=== PATIENT | female | born 1960 | race African-American/Black ===

== ENCOUNTER 2021-01-14 11:17 | Emergency (ER) | payer MEDICARE, MEDICAID ==
[~2021-01-14] VITALS: Ht 165.1 cm; Wt 60.0 kg
[2021-01-14] MEDS ORDERED: BACITRACIN ZINC OINT UDPKT TOP ONE (12:45)
[2021-01-14] MEDS ORDERED: TETANUS, DIPHTHERIA, PERTUSSIS VAC/PF 0.5ML (>10YR OLD) IM ONE (12:45)
[2021-01-14] MEDS ORDERED: ACETAMINOPHEN 325MG TABLET PO ONE (12:45)
[2021-01-14] MEDS ORDERED: TOPUD MT (15:40)
[2021-01-14 16:11] VITALS: BP 119/78
== END 2021-01-14 16:13 | disposition home or self-care (01) ==
LOC: ER 11:36
DX: S02.2XXA Fracture of nasal bones, initial encounter for closed fracture (principal); S00.81XA Abrasion of other part of head, initial encounter; S00.31XA Abrasion of nose, initial encounter; S80.212A Abrasion, left knee, initial encounter; M79.641 Pain in right hand; W01.0XXA Fall on same level from slipping, tripping and stumbling without subsequent striking against object, initial encounter; Y93.89 Activity, other specified; Y92.018 Other place in single-family (private) house as the place of occurrence of the external cause
CPT/HCPCS: 70486; 73130; 73562; 90471; 90715; 99285

== ENCOUNTER 2023-12-27 09:00 | Emergency (ER) | payer MEDICARE, MEDICAID ==
[~2023-12-27] VITALS: Ht 167.6 cm; Wt 91.0 kg
[~2023-12-27 09:00] MED LIST: TOPUD MT
[2023-12-27 09:02] VITALS: O2SAT 99
[2023-12-27 09:07] VITALS: TEMP 100.4; O2SAT 98
[2023-12-27 09:41] LABS: BASOPHILS % 0.5 % (0.0-2.0); DIFFERENTIAL COMMENT 0; EOSINOPHILS % 0.3 % (0.0-5.0); HEMATOCRIT. 30.1 % (36.0-48.0); HEMOGLOBIN. 10.1 g/dL (12.0-16.0); LYMPHOCYTES % 25.7 % (20.0-50.0); MEAN CORPUSCULAR HEMOGLOBIN 35.8 pg (28.0-32.0); MEAN CORPUSCULAR HGB CONC 33.7 g/dL (31.0-37.0); MEAN CORPUSCULAR VOLUME 106.5 fL (81.0-99.0); MEAN PLATELET VOLUME 7.5 fl (7.4-10.4); MONOCYTES % 10.1 % (2.0-8.0); NEUTROPHILS % 63.4 % (40.0-76.0); PLATELET 215 x1000/uL (130-400); RED BLOOD CELL COUNT 2.82 mill/uL (4.2-5.4); WHITE BLOOD COUNT 9.1 x1000/uL (4.5-11.0)
[2023-12-27 09:57] LABS: POTASSIUM 3.8 mEq/L (3.5-5.1)
[2023-12-27 09:58] VITALS: BP 128/77; PULSE 77; RESP 14
[2023-12-27] MEDS: IBUPROFEN 600MG TABLET PO STA (09:58)
[2023-12-27 09:59] LABS: CALCIUM 9.5 mg/dL (8.7-10.4)
[2023-12-27 10:03] LABS: CREATININE 1.5 mg/dL (0.6-1.0)
[2023-12-27 10:13] LABS: CLARITY URINE TURBID (CLEAR); COLOR URINE YELLOW (YELLOW); GLUCOSE URINE NEGATIVE (NEGATIVE); KETONES URINE NEGATIVE (NEGATIVE); LEUKOCYTE ESTERASE URINE 3+ (NEGATIVE); NITRITE URINE POSITIVE (NEGATIVE); OCCULT BLOOD URINE 1+ (NEGATIVE); PROTEIN URINE 1+ (NEGATIVE); SPECIFIC GRAVITY URINE 1.017 (1.005-1.030)
[2023-12-27 10:21] LABS: BACTERIA URINE 4+; SQUAMOUS EPITHELIAL CELL URINE 3+ /lpf (RARE/1+); WBC URINE 25-50 /hpf (0-2); YEAST URINE NONE SEEN
[2023-12-27] MEDS ORDERED: CEPH500T MT (11:01)
[2023-12-27] MEDS ORDERED: ACET-2708 MT (11:01)
[2023-12-27] MEDS: CEFTRIAXONE SODIUM 1G VIAL IM ONE (11:11)
== END 2023-12-27 11:30 | disposition home or self-care (01) ==
LOC: ER 09:00
DX: N39.0 Urinary tract infection, site not specified (principal); Z20.822 Contact with and (suspected) exposure to COVID-19
CPT/HCPCS: 36415; 71045; 80048; 81003; 85025; 87077; 87186; 87426; 87804; 99284

== ENCOUNTER 2024-02-26 13:08 | Emergency (ER) | payer MEDICARE, MEDICAID ==
[~2024-02-26] VITALS: Ht 160 cm; Wt 73.0 kg
[~2024-02-26 13:08] MED LIST changes: +ACET-2708 MT; +CEPH500T MT
[2024-02-26 13:13] VITALS: O2SAT 100
[2024-02-26] MEDS ORDERED: KETOROLAC 30MG/ML VIAL IM ONE (15:15)
[2024-02-26] MEDS ORDERED: ACETAMINOPHEN 325MG TABLET PO ONE (15:15)
[2024-02-26] MEDS ORDERED: ACET-2708 MT (17:04)
[2024-02-26] MEDS: KETOROLAC 30MG/ML VIAL IM NR (17:30)
[2024-02-26] MEDS: ACETAMINOPHEN 325MG TABLET PO NR (18:31)
[2024-02-26 18:41] VITALS: BP 179/87; PULSE 88; RESP 18; TEMP 36.61404; O2SAT 100
== END 2024-02-26 18:47 | disposition home or self-care (01) ==
LOC: ER 13:08
DX: M79.605 Pain in left leg (principal); I10 Essential (primary) hypertension
CPT/HCPCS: 99285; 93971; 73560; 73590; 96372; J1885

== ENCOUNTER 2025-03-11 06:03 | Inpatient (IN) | payer MEDICARE, MEDICAID ==
[~2025-03-11] VITALS: Ht 162.6 cm; Wt 86.6 kg
[2025-03-11 06:05] VITALS: O2SAT 99
[2025-03-11] MEDS: SODIUM CHLORIDE 0.9% (SEPSIS BOLUS) IV ONE (07:13)
[2025-03-11] MEDS: AMPICILLIN SOD/SULBACTAM NA 3 G in SODIUM CHLORIDE 0.9% 100 ML IV STA (07:14)
[2025-03-11 07:15] LABS: HEMATOCRIT. 34.5 % (36.0-48.0); HEMOGLOBIN. 11.2 g/dL (12.0-16.0); MEAN PLATELET VOLUME 7.9 fl (7.4-10.4); PLATELET 244 x1000/uL (130-400); RED BLOOD CELL COUNT 3.57 mill/uL (4.2-5.4); RED CELL DISTRIBUTION WIDTH 14.2 % (11.6-14.6)
[2025-03-11 07:29] LABS: INR 1.1
[2025-03-11 07:33] LABS: UREA NITROGEN BLOOD 18 mg/dL (9-23)
[2025-03-11 07:34] LABS: ASPARTATE AMINOTRANSFERASE 52 IU/L (<34)
[2025-03-11 07:35] LABS: BILIRUBIN DIRECT 0.5 mg/dL (<=3.0); BILIRUBIN TOTAL 1.9 mg/dL (0.1-1.0); PROTEIN TOTAL 8.2 g/dL (6.0-8.3)
[2025-03-11 07:45] LABS: CREATININE 2.1 mg/dL (0.6-1.0)
[2025-03-11 09:00] VITALS: BP 125/68; PULSE 111; RESP 18; TEMP 37.9192
[2025-03-11 10:10] LABS: BAND% 7.0 % (1.0-6.0); EOSINOPHILS % MANUAL 2.0 % (0.0-5.0); LYMPHOCYTES % MANUAL 3.0 % (20.0-60.0); MONOCYTES % MANUAL 2.0 % (2.0-8.0); NEUTROPHILS % MANUAL 86.0 % (45.0-75.0); PLATELET ESTIMATE NORMAL
[2025-03-11] MEDS ORDERED: HYDROCODONE/ACETAMINOPHEN 5/325MG TABLET PO PRN ×2 (10:15→13:15)
[2025-03-11] MEDS ORDERED: NALOXONE HCL 0.4MG/ML VIAL IV PRN (10:30)
[2025-03-11 10:43] LABS: CLARITY URINE CLOUDY (CLEAR); COLOR URINE YELLOW (YELLOW); GLUCOSE URINE NEGATIVE (NEGATIVE); KETONES URINE NEGATIVE (NEGATIVE); LEUKOCYTE ESTERASE URINE 3+ (NEGATIVE); NITRITE URINE NEGATIVE (NEGATIVE); OCCULT BLOOD URINE TRACE (NEGATIVE); PH URINE 5.0 (4.5-8.0); PROTEIN URINE TRACE (NEGATIVE); SPECIFIC GRAVITY URINE 1.015 (1.005-1.030); UROBILINOGEN URINE 0.2 E.U./dL (0.2-1.0)
[2025-03-11 11:02] LABS: HYALINE CASTS URINE 0-5 /lpf
[2025-03-11 11:03] LABS: WBC URINE TNTC /hpf (0-2)
[2025-03-11 11:04] LABS: BACTERIA URINE 2+; TRICHOMONAS URINE FEW
[2025-03-11 11:05] LABS: MUCUS URINE 1+ /lpf (< = 2+); RBC URINE 0-2 /hpf (0-2); SQUAMOUS EPITHELIAL CELL URINE 2+ /lpf (RARE/1+)
[2025-03-11 12:00] VITALS: BP 125/68; PULSE 108; RESP 18; TEMP 37.7; O2SAT 96
[2025-03-11] MEDS ORDERED: ONDANSETRON HCL 4MG/2ML INJ IV PRN (13:15)
[2025-03-11] MEDS ORDERED: CLONIDINE 0.1MG TABLET PO PRN (13:15)
[2025-03-11] MEDS ORDERED: MAGNESIUM/ALUMINUM HYDROXIDE/SIMETHICONE 30ML UDC PO PRN (13:15)
[2025-03-11] MEDS ORDERED: ZOLPIDEM TARTRATE 5MG TABLET PO PRN (13:15)
[2025-03-11] MEDS ORDERED: SODIUM CHLORIDE 0.9% 1,000 ML IV SCH (13:15)
[2025-03-11] MEDS: SODIUM CHLORIDE 0.9% 1,000 ML IV SCH (13:30)
[2025-03-11] MEDS: PIPERACILLIN/TAZO 3.375G/50ML 50 ML IV SCH (14:17)
[2025-03-11] MEDS: ENOXAPARIN 40MG/0.4ML SYR SUBCUT SCH (14:20)
[2025-03-11] MEDS: ACETAMINOPHEN 325MG TABLET PO PRN (15:07)
[2025-03-11] MEDS: VANCOMYCIN 1.75GM PMX (XELLIA) 350 ML IV SCH (15:08)
[2025-03-11 16:00] VITALS: BP 124/48; PULSE 110; RESP 18; TEMP 38.9; O2SAT 98
[2025-03-11 20:00] VITALS: BP 105/51; PULSE 100; RESP 19; TEMP 36.8; O2SAT 97
[2025-03-12] VITALS: BP 101/62; PULSE 95; RESP 17; TEMP 36.7; O2SAT 98
[2025-03-12 04:16] VITALS: BP 112/55; PULSE 97; RESP 18; TEMP 36.6; O2SAT 97
[2025-03-12 07:22] LABS: UREA NITROGEN BLOOD 14.0 mg/dL (9-23)
[2025-03-12 07:28] LABS: CREATININE 1.4 mg/dL (0.6-1.0)
[2025-03-12 07:34] LABS: BASOPHILS % 0.2 % (0.0-2.0); EOSINOPHILS % 4.5 % (0.0-5.0); HEMATOCRIT. 27.4 % (36.0-48.0); HEMOGLOBIN. 8.9 g/dL (12.0-16.0); LYMPHOCYTES % 7.3 % (20.0-50.0); MEAN PLATELET VOLUME 7.8 fl (7.4-10.4); MONOCYTES % 4.1 % (2.0-8.0); NEUTROPHILS % 83.9 % (40.0-76.0); PLATELET 176 x1000/uL (130-400); RED BLOOD CELL COUNT 2.85 mill/uL (4.2-5.4); RED CELL DISTRIBUTION WIDTH 14.0 % (11.6-14.6)
[2025-03-12 08:00] VITALS: BP 116/53; PULSE 63; RESP 18; TEMP 36.1; O2SAT 100
[2025-03-12] MEDS: PANTOPRAZOLE SODIUM 40 MG/VIAL IV SCH (09:47)
[2025-03-12 12:00] VITALS: BP 106/58; PULSE 93; RESP 18; TEMP 36.5; O2SAT 100
[2025-03-12 13:31] LABS: *AMPHETAMINES SCREEN URINE NEGATIVE (NEGATIVE); *BARBITURATES SCREEN URINE NEGATIVE (NEGATIVE); *BENZODIAZEPINES SCREEN URINE NEGATIVE (NEGATIVE); *COCAINE SCREEN URINE NEGATIVE (NEGATIVE); ECSTASY MDMA SCREEN URINE NEGATIVE (NEGATIVE); METHADONE URINE SCREEN NEGATIVE (NEGATIVE); OPIATES URINE SCREEN NEGATIVE (NEGATIVE); PHENCYCLIDINE URINE SCREEN NEGATIVE (NEGATIVE)
[2025-03-12] MEDS ORDERED: DOLU50TA MT (14:05)
[2025-03-12] MEDS ORDERED: EMTR1TAB12 MT (14:05)
[2025-03-12] MEDS ORDERED: LISI-649 MT (14:08)
[2025-03-12 15:09] LABS: CANNABINOID URINE SCREEN NEGATIVE (NEGATIVE)
[2025-03-12 16:00] VITALS: BP 119/56; PULSE 87; RESP 19; TEMP 36.7; O2SAT 100
[2025-03-12 20:00] VITALS: BP 99/44; PULSE 90; RESP 18; TEMP 36.6; O2SAT 98
[2025-03-12] MEDS: VANCOMYCIN 750MG PREMIX 150 ML IV SCH (21:23)
[2025-03-12] MEDS: MORPHINE SULFATE 2 MG/ML INJ (NOT FOR IM USE) IV PRN (21:51)
[2025-03-13] VITALS: BP 113/58; PULSE 79; RESP 18; TEMP 36.3; O2SAT 97
[2025-03-13 04:00] VITALS: BP 103/59; PULSE 76; RESP 19; TEMP 36; O2SAT 99
[2025-03-13 07:52] LABS: BASOPHILS % 0.2 % (0.0-2.0); EOSINOPHILS % 7.2 % (0.0-5.0); HEMATOCRIT. 27.4 % (36.0-48.0); HEMOGLOBIN. 9.1 g/dL (12.0-16.0); LYMPHOCYTES % 15.6 % (20.0-50.0); MEAN PLATELET VOLUME 8.1 fl (7.4-10.4); MONOCYTES % 7.5 % (2.0-8.0); NEUTROPHILS % 69.5 % (40.0-76.0); PLATELET 167 x1000/uL (130-400); RED BLOOD CELL COUNT 2.87 mill/uL (4.2-5.4); RED CELL DISTRIBUTION WIDTH 13.8 % (11.6-14.6)
[2025-03-13 08:00] VITALS: BP 147/67; PULSE 79; RESP 18; TEMP 36.6; O2SAT 99
[2025-03-13 08:16] LABS: CREATININE 1.1 mg/dL (0.6-1.0)
[2025-03-13 08:20] LABS: UREA NITROGEN BLOOD 8 mg/dL (9-23)
[2025-03-13 12:00] VITALS: BP 111/59; PULSE 94; RESP 16; TEMP 36.4; O2SAT 100
[2025-03-13] MEDS: POTASSIUM CHLORIDE 20MEQ TABLET SR PO NR (14:19)
[2025-03-13] MEDS ORDERED: VANCOMYCIN 1.25GM/250ML 250 ML IV SCH (15:00)
[2025-03-13 16:00] VITALS: BP 121/67; PULSE 83; RESP 16; TEMP 36.4; O2SAT 99
[2025-03-13 20:00] VITALS: BP 119/55; PULSE 85; RESP 18; TEMP 36.7; O2SAT 99
[2025-03-13] MEDS: TIVICAY (DOLUTEGRAVIR) 50MG TABLET PO SCH (23:28)
[2025-03-14] VITALS: BP 127/74; PULSE 82; RESP 19; TEMP 36.7; O2SAT 99
[2025-03-14 04:00] VITALS: BP 120/59; PULSE 79; RESP 19; TEMP 36.5; O2SAT 99
[2025-03-14 07:31] LABS: BASOPHILS % 0.5 % (0.0-2.0); EOSINOPHILS % 12.2 % (0.0-5.0); HEMATOCRIT. 29.1 % (36.0-48.0); HEMOGLOBIN. 9.6 g/dL (12.0-16.0); LYMPHOCYTES % 24.0 % (20.0-50.0); MEAN PLATELET VOLUME 7.9 fl (7.4-10.4); MONOCYTES % 13.5 % (2.0-8.0); NEUTROPHILS % 49.8 % (40.0-76.0); PLATELET 199 x1000/uL (130-400); RED BLOOD CELL COUNT 3.04 mill/uL (4.2-5.4); RED CELL DISTRIBUTION WIDTH 14.2 % (11.6-14.6)
[2025-03-14 07:55] LABS: CREATININE 1.0 mg/dL (0.6-1.0); UREA NITROGEN BLOOD 10 mg/dL (9-23)
[2025-03-14 08:00] VITALS: BP 127/67; PULSE 75; RESP 19; TEMP 36.6; O2SAT 99
[2025-03-14] MEDS ORDERED: AMOX1TAB16 MT (10:29)
[2025-03-14] MEDS ORDERED: SULF1TAB48 MT (10:29)
[2025-03-14 11:53] VITALS: BP 127/66; PULSE 75; RESP 19; TEMP 97.7
[2025-03-14 12:00] VITALS: BP 127/66; PULSE 75; RESP 19; TEMP 36.5; O2SAT 100
[2025-03-14] MEDS ORDERED: VANCOMYCIN 750MG PREMIX 150 ML IV SCH (21:00)
[2025-03-15] MEDS ORDERED: FAMOTIDINE 20MG/2ML VIAL IV SCH (09:00)
== END 2025-03-14 15:45 | disposition home or self-care (01) | DRG 872 ==
LOC: ER 06:03 → 4WST 08:06 → EDBEDREQ 08:10 → EDBEDREQTM 08:10 → ENRESERV 08:44
PROVIDERS: ADMIT Internal Medicine; ATTEND Internal Medicine
DX: A41.9 Sepsis, unspecified organism (principal); S09.90XA Unspecified injury of head, initial encounter; L03.115 Cellulitis of right lower limb; N17.9 Acute kidney failure, unspecified; N39.0 Urinary tract infection, site not specified; L03.116 Cellulitis of left lower limb; I10 Essential (primary) hypertension; I87.8 Other specified disorders of veins; I87.2 Venous insufficiency (chronic) (peripheral); X58.XXXA Exposure to other specified factors, initial encounter; Y93.89 Activity, other specified; Y92.89 Other specified places as the place of occurrence of the external cause; Y99.8 Other external cause status
CPT/HCPCS: 36415; 71045; 80048; 80076; 80305; 81003; 83605; 84145; 84443; 85025; 93005; 93970; 97165; 99291; J0295; J1650; J2270; J2470; J2543; J3373; J7030; J7050

== ENCOUNTER 2025-03-26 13:42 | Emergency (ER) | payer MEDICARE, MEDICAID ==
[~2025-03-26] VITALS: Ht 162.6 cm; Wt 79.0 kg
[~2025-03-26 13:42] MED LIST changes: +AMOX1TAB16 MT; -CEPH500T MT; +DOLU50TA MT; +EMTR1TAB12 MT; +LISI-649 MT; +SULF1TAB48 MT
[2025-03-26 13:59] VITALS: BP 131/67; TEMP 36.7; O2SAT 100
[2025-03-26 14:01] VITALS: PULSE 100; RESP 16; O2SAT 100
[2025-03-26 14:59] LABS: BASOPHILS % 1.6 % (0.0-2.0); EOSINOPHILS % 4.1 % (0.0-5.0); HEMATOCRIT. 30.2 % (36.0-48.0); HEMOGLOBIN. 9.8 g/dL (12.0-16.0); LYMPHOCYTES % 37.4 % (20.0-50.0); MEAN PLATELET VOLUME 7.3 fl (7.4-10.4); MONOCYTES % 8.9 % (2.0-8.0); NEUTROPHILS % 48.0 % (40.0-76.0); PLATELET 385 x1000/uL (130-400); RED BLOOD CELL COUNT 3.15 mill/uL (4.2-5.4); RED CELL DISTRIBUTION WIDTH 15.2 % (11.6-14.6)
[2025-03-26 15:19] LABS: UREA NITROGEN BLOOD 35.0 mg/dL (9-23)
[2025-03-26 15:22] LABS: CREATININE 3.4 mg/dL (0.6-1.0)
== END 2025-03-26 15:29 | disposition left against medical advice (07) ==
LOC: ER 13:42
DX: N28.9 Disorder of kidney and ureter, unspecified (principal); D64.9 Anemia, unspecified; E87.5 Hyperkalemia; I10 Essential (primary) hypertension; Z79.899 Other long term (current) drug therapy
CPT/HCPCS: 36415; 80048; 85025; 99283